=== PATIENT | female | born 1940 | race African-American/Black ===

== ENCOUNTER 2019-06-15 07:43 | Day surgery (SDC) | payer OTHER ==
[2019-06-12 16:30] VITALS: BMI 33.3
[2019-06-15] MEDS ORDERED: PROPOFOL 20 ML ONE (08:23)
[2019-06-15 09:49] VITALS: TEMP 98
[2019-06-15 10:15] VITALS: BP 137/75; PULSE 62
--- NOTE | 2019-06-21 11:19 | PATH ---
Surgical Pathology Report Patient Name: YELENA CLINE [facility]. Rec. #: [id number] /Age/Gender: 1940 (Age: 79) / M Account: [id number] Location: [facility] MED-[facility] Taken: 06/15/2019 Received: 06/15/2019 Reported: 06/20/2019 Physicians: Jose Lawson M.D. Specimen(s) Received A: GASTRIC ANTRUM B: POLYP GASTRIC FUNDUS Clinical History Gastritis, gastric polyp Final Diagnosis A. GASTRIC ANTRUM, BIOPSY: MILD CHRONIC GASTRITIS WITH FEATURES OF REACTIVE GASTROPATHY. IMMUNOSTAIN IS NEGATIVE FOR H. PYLORI ORGANISMS. B. GASTRIC FUNDUS, POLYP, BIOPSY: MILD CHRONIC GASTRITIS. IMMUNOSTAIN IS NEGATIVE FOR H. PYLORI ORGANISMS. Electronically Signed Esmer Hernandez M.D. Gross Description A. Received in formalin, labeled "gastric antrum" are 2 garcia, irregular portions of soft tissue each measuring 0.3 cm. in greatest dimension. The specimens are submitted in toto in one cassette. B. Received in formalin, labeled "polyp, gastric fundus" is a garcia, irregular portion of soft tissue measuring 0.3 cm. in greatest dimension. The specimen is submitted in toto in one cassette. AE/06/20/2019 ebram/06/20/2019
== END 2019-06-15 10:15 | disposition home or self-care (01) ==
LOC: FASU-ENDO 07:43
PROVIDERS: ATTEND Internal Medicine Gastroenterology
PROC: 0DB68ZX Excision of Stomach, Via Natural or Artificial Opening Endoscopic, Diagnostic (ICD-10-PCS; principal; 2019-06-15 09:18)
DX: K29.50 Unspecified chronic gastritis without bleeding (principal); K31.7 Polyp of stomach and duodenum; K29.80 Duodenitis without bleeding; R10.13 Epigastric pain
CPT/HCPCS: 88305-TC; 88342-TC

== ENCOUNTER 2021-11-06 07:46 | Day surgery (SDC) | payer OTHER ==
[2021-11-04 14:58] VITALS: BMI 32.3
[2021-11-06] MEDS ORDERED: LIDOCAINE HCL/PF 2% SDV 5ML VIAL ONE (08:00)
[2021-11-06] MEDS ORDERED: PROPOFOL 20 ML ONE (08:00)
[2021-11-06 09:06] VITALS: BP 110/79; PULSE 78; TEMP 97.3
== END 2021-11-06 09:30 | disposition home or self-care (01) ==
LOC: FASU-ENDO 07:46
PROVIDERS: ATTEND Internal Medicine Gastroenterology
PROC: 0DB68ZX Excision of Stomach, Via Natural or Artificial Opening Endoscopic, Diagnostic (ICD-10-PCS; 2021-11-06)
PROC: 0DB98ZX Excision of Duodenum, Via Natural or Artificial Opening Endoscopic, Diagnostic (ICD-10-PCS; principal; 2021-11-06 08:16)
DX: K29.50 Unspecified chronic gastritis without bleeding (principal); R11.0 Nausea
CPT/HCPCS: 88305-TC; 88342-TC